=== PATIENT | male | born 1965 | race African-American/Black ===

== ENCOUNTER 2024-03-10 10:38 | Emergency (ER) | payer OTHER, SELFPAY ==
--- NOTE | ~2024-03-10 | CT_ITS ---
CT of the Abdomen and Pelvis: Indication: Abdominal pain Technique: 2.5 mm axial scans were obtained through the abdomen and pelvis following intravenous adm inistration of 100 cc of Omnipaque 350. Dose reduction technique was used on this scan by utilizing a utomated exposure control and iterative reconstruction technique. The dose-length product (DLP) was 7 46.21 mGy-cm. Findings: Scans through the lung bases are unremarkable. There is diffuse hepatic steatosis. The spleen, pancreas, gallbladder, adrenals and kidneys are withi n normal limits. No evidence of aortic aneurysm. No lymphadenopathy. There is wall thickening and inflammatory change centered about diverticulum at the proximal sigmoid colon, compatible with acute diverticulitis. No abscess or free air. No bowel obstruction. Small fat- containing umbilical hernia noted. Normal appendix. Images through the pelvis were performed. Urinary bladder unremarkable. No pelvic mass seen. No ascit es. Impression: Acute sigmoid diverticulitis, as detailed above. No abscess or free air. Diffuse hepatic steatosis. Small fat-containing umbilical hernia. Reviewed, dictated and finalized at location . Impression: Acute sigmoid diverticulitis, as detailed above. No abscess or free air. Diffuse hepatic steatosis. Small fat-containing umbilical hernia.
[2024-03-10 10:49] VITALS: BP 142/116; PULSE 92; RESP 16; TEMP 36.2; O2SAT 100
[2024-03-10 11:39] VITALS: BP 140/104; PULSE 79; RESP 16; TEMP 36.8; O2SAT 98
[2024-03-10 11:45] LABS: Basophils Percent Auto 0.9 % (0.2-1.2); Eosinophils Absolute Auto 0.1 K/mm3 (0-0.3); Eosinophils Percent Auto 1.1 % (0-4.4); Hematocrit 46.7 % (42.0-52.0); Hemoglobin 15.9 g/dL (14.0-18.0); Lymphocytes Absolute Auto 1.37 K/mm3 (0.9-3.2); Lymphocytes Percent Auto 30.7 % (18.3-44.2); Mean Corpuscular Hemoglobin 30.2 pg (26-34); Mean Corpuscular Volume 88.8 fl (80-100); Monocytes Absolute Auto 0.5 K/mm3 (0.1-0.6); Monocytes Percent Auto 11.2 % (2.6-8.5); Neutrophils Absolute Auto 2.5 K/mm3 (1.3-6.7); Neutrophils Percent Auto 56.1 % (45.5-73.1); Platelet Count Result 174 k/mm3 (150-375); Red Blood Count 5.26 M/mm3 (4.6-6.20); White Blood Count 4.5 K/mm3 (4.5-10.0)
[2024-03-10 11:57] LABS: Alanine Aminotransferase 28 U/L (6-50); Albumin Level 5.2 g/dL (3.5-5.1); Alkaline Phosphatase 78 U/L (38-126); Anion Gap 12 mmol/L (4-12); Aspartate Amino Transferase 31 U/L (17-59); Bilirubin,Total 1.4 mg/dL (0.2-1.3); Blood Urea Nitrogen 20 mg/dL (9-20); Calcium 9.6 mg/dL (8.4-10.2); Carbon Dioxide 26 mmol/L (22-30); Chloride 99 mmol/L (98-107); Estimated CRCL calculation 45 ml/min; Estimated Glomerular Filt Rate 37; Glucose 124 mg/dL (65-110); Lipase 44 U/L (23-300); Potassium 4.4 mmol/L (3.4-5.0); Sodium 137 mmol/L (137-145)
--- NOTE | 2024-03-10 12:00 | ED.ABDPAIN ---
HPI - Abdominal Pain General Chief Complaint: Abdominal Pain Stated Complaint: abd pain Time Seen by Provider: 03/10/24 11:41 History of Present Illness HPI narrative: Patient is a 58-year-old male with history of prior bowel obstruction approximately 12 years ago here today with left lower quadrant abdominal pain. He states that the pain began in a mild nature about 3 days ago, he noted it was initially tolerable in the next day became more severe. He states that he had a steak about 2 days ago and believes that he could feel it moving through his entire colon and it felt worse when I got to the left lower quadrant. He does note that since his bowel obstruction several years ago he has ensured that he never gets constipated. He notes that 2 days ago he took a couple tablets of a prior 15 day cleanse and had a bowel movement Yesterday. Yesterday morning when he woke up the pain seemed to have improved however it seems to have worsened again over night last night. He notes continued flatulence. Denies fever or chills. He has had no prior colonoscopies. He has not had any sick contacts. 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 He does not additionally note that he has been having some ongoing left shoulder pain for approximately 1 month. Was started on anti-inflammatories and muscle relaxers by an outside physician around that time. He notes continued pain with raising his arm above his head especially when he is in his truck and trying to turn the tiles of his AC overnight. He denies any new injuries since his last evaluation for shoulder pain. No chest pain, cough, congestion, shortness of breath. Related Data Allergies Allergy/AdvReac Type Severity Reaction Status Date / Time No Known Allergies Allergy Verified 03/10/24 10:41 Review of Systems Review of Systems: All systems reviewed & are unremarkable except as noted in HPI and below Exam Narrative: GENERAL: Well-appearing, well-nourished, and in no acute distress. HEAD: Normocephalic, atraumatic. EYES: PERRLA and EOMI. ENT: Nares clear. Mucous membranes moist. NECK: Supple. CHEST: Clear to auscultation. No respiratory distress. HEART: Regular rate and rhythm. Normal peripheral pulses. ABDOMEN: Soft, LLQ tenderness, no rebound or guarding, nondistended. EXTREMITIES: Normal range of motion. No edema. No obvious deformity of the right shoulder, no pain with ROM, no limitation in ROM, strong radial pulse on the right with normal sensation throughout the arm. SKIN: Warm, dry, no rash. NEURO: No focal deficits. Alert and oriented x3. PSYCH: Normal mood and affect. Course Course Emergency Course: Chart review performed, patient here for left lower quadrant abdominal pain x3 days. History of prior obstruction. Triage vitals normal. No prior visits in our system. No leukocytosis, stable hemoglobin, creatinine 1.9, no prior for comparison. Lipase normal. Patient seen evaluated, nontoxic appearing. He is here for some left lower quadrant abdominal pain. Differentials include diverticulitis, diverticular disease, less likely UTI, bowel obstruction, colitis, gastroenteritis, appendicitis, Constipation. No right lower quadrant or right upper quadrant abdominal tenderness. he does have chronic right shoulder pain without any positive exam findings or new trauma. Advised him that he should follow with his primary care doctor and possibly get referral/outpatient MRI for possible rotator cuff injury. Do not feel that x-rays are indicated at this time given no new trauma. Pending CT and UA a this time. 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 He is agreeable to workup and plan. CT scan consistent with acute diverticulitis. Will start patient on antibiotics. The results of pertinent diagnostic studies and exam findings were discussed. The patie
[2024-03-10 12:39] VITALS: BP 136/106; PULSE 80; RESP 16; TEMP 36.6; O2SAT 98
[2024-03-10 13:21] LABS: Appearance Urine Clear (Clear); Bacteria Urine None Seen /hpf; Bilirubin Urine Negative (Negative); Blood Urine Negative (Negative); Color Urine Dark Yellow (Yellow); Glucose Urine UA Negative (Negative); Ketones Urine 1+ mg/dL (Negative); Leukocyte Esterase Ur Negative LEU/UL (Negative); Mucus Urine Present /lpf; Nitrate Urine Negative (Negative); Protein Urine Trace mg/dL (Negative); Specific Grav Ur 1.026 (1.001-1.035); Squamous Epithelial Cell Urine None Seen /hpf (Few); WBC Urine 0-5 /hpf (0-3); pH Urine 5.5 (5.0-9.0)
[2024-03-10 13:24] LABS: Add Urine Microscopic? YES
[2024-03-10 13:30] VITALS: BP 117/91; PULSE 80; RESP 16; TEMP 36.6; O2SAT 98
[2024-03-10 14:30] VITALS: BP 132/88; PULSE 82; RESP 16; TEMP 36.6; O2SAT 98
[2024-03-10 15:30] VITALS: BP 130/88; PULSE 78; RESP 16; TEMP 36.6; O2SAT 100
[2024-03-10] MEDS: AMOXICILLIN/CLAVULANATE K 875-125 MG TAB 1 TABLET PO (15:54)
== END 2024-03-10 16:11 | disposition home or self-care (01) ==
PROVIDERS: Emergency Medicine; Emergency Provider Student in an Organized Health Care Education/Training Program
DX: K57.32 Diverticulitis of large intestine without perforation or abscess without bleeding (principal); K76.0 Fatty (change of) liver, not elsewhere classified; K42.9 Umbilical hernia without obstruction or gangrene
CPT/HCPCS: 36415; 74177; 80053; 81001; 83690; 85025; 99284; A9270; Q9967